=== PATIENT | female | born 1945 | race Caucasian/White ===

== ENCOUNTER 2020-10-11 12:49 | Outpatient (CLI) | payer MEDICARE, OTHER, SELFPAY ==
--- NOTE | 2020-10-11 13:00 | XRR_ITS ---
PROCEDURE INFORMATION: Exam: XR Abdomen Exam date and time: 10/11/2020 1:00 PM Age: 75 years old Clinical indication: Bloating; Patient HX: History--abdominal distension, abnormal lung sounds TECHNIQUE: Imaging protocol: XR of the abdomen. Views: Frontal supine view of the abdomen. 1 View. COMPARISON: No relevant prior studies available. FINDINGS: Gastrointestinal tract: There is a prominent amount of stool in the colon and rectum which may indicate constipation. There is no small bowel dilatation. Bones/joints: Degenerative changes are present in the spine. XR/XR KUB [id number] IMPRESSION: Prominent amount of stool consistent with constipation. No acute abnormality .
--- NOTE | 2020-10-11 13:00 | XRR_ITS ---
PROCEDURE INFORMATION: Exam: XR Chest Exam date and time: 10/11/2020 1:00 PM Age: 75 years old Clinical indication: Patient HX: History--abdominal distension, abnormal lung sounds TECHNIQUE: Imaging protocol: XR of the chest. Views: 2 views. COMPARISON: No relevant prior studies available. FINDINGS: Lungs: Unremarkable. No consolidation. Pleural spaces: Unremarkable. No pleural effusion. No pneumothorax. Heart/Mediastinum: The heart is not enlarged. There is calcification of the thoracic aorta. Bones/joints: There is a thoracolumbar scoliosis. There is diffuse decreased bone density. Degenerative changes are present in the spine. XR/XR chest 2V* [id number] IMPRESSION: No acute cardiopulmonary abnormality.
== END 2020-10-11 12:50 | disposition home or self-care (01) ==
LOC: RAD 12:56
PROVIDERS: Visit Provider Family Medicine
DX: R14.0 Abdominal distension (gaseous) (principal); R09.89 Other specified symptoms and signs involving the circulatory and respiratory systems
CPT/HCPCS: 71046; 74018

== ENCOUNTER 2020-10-26 09:06 | Outpatient (CLI) | payer MEDICARE, OTHER, SELFPAY ==
--- NOTE | 2020-10-26 09:25 | CT_ITS ---
WS: [id number] Exam: CT abdomen pelvis w con* [id number] Date/Time of Exam: 10/26/2020 9:25 AM Reason For Exam: LEFT LOWER QUADRANT PAIN, DISTENSION DLP: 867.[address] scans at [facility] use at least one of these dose optimization techniques: automat ed exposure control; mA and/or kV adjustment per patient size (includes targeted exams where dose is matched to clinical indication); or iterative reconstruction. 1.6 x 1.1 cm lobulated nodule partially visualized in the inferior left breast. 3 mm pleural-based no dule seen in the lateral aspect of the left lower lobe too small to characterize. Remaining lower daksha g zones were clear. The liver and gallbladder appear normal. The spleen is not enlarged. The stomach is unremarkable as visualized. The abdominal aorta is normal in caliber. The pancreas is unremarkable . The portal vein and IVC are patent. Normal adrenal glands and kidneys. Small bowel loops are not di lated. No significant large bowel abnormality seen. Moderate amount of stool in the colon. The append ix is not definitely identified but no findings that would suggest acute appendicitis. No free air. N o lymphadenopathy. No mass or adenopathy in the pelvis. The urinary bladder is unremarkable. No destr uctive bone lesions. Degenerative changes of the lumbar spine and scoliosis. Degenerative spondylolis thesis of L4 on L5. CT/CT abdomen pelvis w con* [id number] IMPRESSION: 1. 1.6 x 1.1 cm lobulated partially visualized nodular density in the inferior left breast. Physical exam and follow-up with mammography recommended unless th is has been recently performed. 2. 3 mm pleural-based nodule in the lateral aspect of the left lower lobe too s mall to characterize. 3. No mass, lymphadenopathy or acute finding in the abdomen or pelvis.
[2020-10-26] MEDS: iohexol 300 mg/mL 50 mL Btl PO (09:37)
[2020-10-26] MEDS: iohexol 300 mg/mL 100 mL Btl IV (10:56)
== END 2020-10-26 09:07 | disposition home or self-care (01) ==
PROVIDERS: PCP Family Medicine; Visit Provider Family Medicine
DX: R10.32 Left lower quadrant pain (principal); R14.0 Abdominal distension (gaseous); N63.20 Unspecified lump in the left breast, unspecified quadrant
CPT/HCPCS: 74177; 82565; Q9967

== ENCOUNTER 2020-10-31 14:32 | Outpatient (CLI) | payer MEDICARE, OTHER, SELFPAY ==
--- NOTE | 2020-10-31 14:40 | CT_ITS ---
WS: [id number] CT scan of the chest without IV contrast, additional two-dimensional coronal and sagittal reconstruct ion was performed. 10/31/2020 Clinical Data: LOCALIZED SWELLING, MASS AND LUMP TRUNK Comparison: CT abdomen and pelvis, 01/26/2021. DLP: 514.[address] scans at [facility] use at least one of these dose optimization techniques: automat ed exposure control; mA and/or kV adjustment per patient size (includes targeted exams where dose is matched to clinical indication); or iterative reconstruction. Findings: There is a density in the left breast in the axillary region. It may be helpful to do a steph mogram and perhaps a left axillary ultrasound. The left lower lobe pleural-based nodule is barely vis ible on axial image 36 of 61 and has not changed. No other nodules are seen. No masses or effusions a re seen. The heart size is normal with no pericardial effusion. There is calcification in the coronar y arteries. No pneumonia or pneumothorax is present. The pulmonary arterial system and thoracic aorta demonstrate no abnormalities or dilatations. The trachea bifurcates into the bronchi. There is no ax illary or significant mediastinal adenopathy. The upper abdomen shows no change from before. CT/CT chest wo con [id number] Impression: 1. Possible left breast mass in the axillary region and recommend mammography a nd axillary ultrasound. 2. Small left lower lobe pleural-based nodule and no further imaging is recomme nded.
== END 2020-10-31 14:33 | disposition home or self-care (01) ==
PROVIDERS: PCP Family Medicine; Visit Provider Family Medicine
DX: R91.1 Solitary pulmonary nodule (principal)
CPT/HCPCS: 71250

== ENCOUNTER 2022-05-18 12:47 | Outpatient (CLI) | payer MEDICARE, OTHER, SELFPAY ==
[2022-05-18 15:36] LABS: INR 1.83 (0.8-1.2)
== END 2022-05-18 12:48 | disposition home or self-care (01) ==
LOC: LAB 12:52
PROVIDERS: PCP Family Medicine; Visit Provider Surgery
DX: Z01.89 Encounter for other specified special examinations (principal)
CPT/HCPCS: 85610

== ENCOUNTER 2022-05-22 11:48 | Outpatient (CLI) | payer MEDICARE, OTHER, SELFPAY ==
[2022-05-22 12:45] LABS: INR 1.77 (0.8-1.2)
== END 2022-05-22 11:49 | disposition home or self-care (01) ==
LOC: LAB 11:52
PROVIDERS: PCP Family Medicine; Visit Provider Surgery
DX: Z01.89 Encounter for other specified special examinations (principal)
CPT/HCPCS: 85610

== ENCOUNTER 2022-05-22 22:22 | Inpatient (IN) | payer MEDICARE, OTHER, SELFPAY ==
--- NOTE | 2022-05-22 22:29 | XRR_ITS ---
PROCEDURE INFORMATION: Exam: XR Chest Exam date and time: 05/22/2022 11:04 PM Age: 76 years old Clinical indication: Other: High BP, arm numbness; Prior surgery; Surgery date: <1 month; Surgery type: Mitral valve replacement 2 weeks ago; Additional info: Cp TECHNIQUE: Imaging protocol: Radiologic exam of the chest. Views: 1 view. COMPARISON: CT chest con [id number] 10/31/2020 2:48 PM FINDINGS: Lungs: Bilateral lower lung field atelectasis versus infiltrate. Pleural spaces: Small to moderate right and moderate to large left pleural effusions. Heart/Mediastinum: Unremarkable. No cardiomegaly. Bones/joints: Sternotomy wires. XR/XR chest 1V portable [id number] IMPRESSION: 1. Small to moderate right and moderate to large left pleural effusions. 2. Bilateral lower lung field atelectasis versus infiltrate. 3. Sternotomy wires.
--- NOTE | 2022-05-22 22:29 | ECG_ITS ---
[facility] Test Date: 2022-05-22 Pat Name: Barbara Magallanes Department: Room: Gender: Female Machine Rigger: : 1945 Requested By: Ron Rojas Order Number: [id number] Ifeoma MD: Ian Guzman M.D. Measurements Intervals Supply Rate: 43 P: 16 HI: 127 QRS: -20 QRSD: 74 T: 45 QT: 482 QTc: 408 Interpretive Statements SINUS BRADYCARDIA POSSIBLE ANTERIOR MYOCARDIAL INFARCTION , PROBABLY OLD [30 ms Q WAVE IN V3/V4, OR R < 0.2 mV IN V4] No previous ECG available for comparison Electronically Signed On 05-23-2022 10:26:47 LINE ASSIGNER by Ian Guzman M.D. [email or web address] [facility]mer[facility] [id number]
[2022-05-22 22:35] VITALS: BMI 27.5
[2022-05-22 22:41] VITALS: BP 155/73; PULSE 42; RESP 21; O2SAT 87
--- NOTE | 2022-05-22 22:54 | CTR_ITS ---
PROCEDURE INFORMATION: Exam: CTA Chest With Contrast Exam date and time: 05/22/2022 11:58 PM Age: 76 years old Clinical indication: Shortness of breath; Prior surgery; Surgery date: <1 month; Patient HX: C/O SOB. Hypertension with hypoxia on monitor. Mitral valve replacement two weeks ago. TECHNIQUE: Imaging protocol: Computed tomographic angiography of the chest with contrast. 3D rendering (Not supervised by radiologist): MIP and/or 3D reconstructed images were created by the technologist. Radiation optimization: All CT scans at this facility use at least one of these dose optimization techniques: automated exposure control; mA and/or kV adjustment per patient size (includes targeted exams where dose is matched to clinical indication); or iterative reconstruction. Contrast material: OMNI 350; Contrast volume: 69 ml; Contrast route: INTRAVENOUS (IV); REPORTING DATA: Count of CT and Cardiac NM exams in prior 12 months: This patient has received 0 known CTs and 0 known cardiac nuclear medicine studies in the 12 months prior to the current study. COMPARISON: CT chest [facility] [id number] 10/31/2020 2:48 PM RADIATION DOSE METRICS: Total DLP (mGy-cm): 440.71 FINDINGS: Pulmonary arteries: Normal. No pulmonary emboli. Aorta: Unremarkable. No aortic aneurysm. No aortic dissection. Lungs: Bilateral dependent airspace infiltrates. Pleural spaces: Large bilateral pleural effusions. Heart: Cardiomegaly. Pericardial effusion measuring 10 mm in thickness. Coronary arteries: Coronary artery atherosclerotic calcifications. Lymph nodes: Unremarkable. No enlarged lymph nodes. Bones/joints: Unremarkable. No acute fracture. Soft tissues: Unremarkable. CT/CT angio chest PE protcl [id number] IMPRESSION: 1. Large bilateral pleural effusions. 2. Cardiomegaly. 3. Coronary artery atherosclerotic calcifications. 4. Pericardial effusion measuring 10 mm in thickness. 5. Bilateral dependent airspace infiltrates. 6. Negative for pulmonary embolus.
--- NOTE | 2022-05-22 23:06 | ED_ITS ---
HPI - SOB/Dyspnea General: Chief Complaint: Shortness of Breath/Dyspnea Stated Complaint: heart surgery 2 weeks ago/face and arm numbness Time Seen by Provider: 05/22/22 22:45 Source: patient Mode of arrival: ambulatory Limitations: no limitations History of Present Illness: HPI Narrative: 76-year-old female who had mitral valve replacement for mitral valve prolapse 2 weeks ago but no prior surgery at [facility] she states that she had some chronic dyspnea since then she has been doing breathing exercise she states today she had some tingling in her arms centimeter concerns when to get her INR checked she denies any pain anywhere. Denies any cough or fever. Associated symptoms: Deny abdominal pain, chest pain, fever(s), nausea or vomiting Review of Systems Const: Denies: fever(s), chills, body aches or change in appetite Eyes: Denies: blurry vision or eye discomfort ENMT: Denies: throat pain or dental pain Card: Denies: chest pain Resp: Reports: dyspnea GI: Denies: abdominal pain, nausea, vomiting or diarrhea : Denies: dysuria Musc: Denies: neck pain or back pain Skin/Breast: Denies: rash Neuro: Denies: headache(s) Psych: Denies: depression Abrahan/Lymph: Denies: easy bruising All/Imm: Denies: urticaria PFSH ED PFSH: Surgical History Mitral valve replaced Social History Current gender identity: Female Female Reproductive History: Spontaneous abortions: No Physical Exam Const: COMMON NORMALS: no acute distress, patient oriented x3 and healthy appearing HENMT: COMMON NORMALS: normocephalic and atraumatic HEAD & SCALP: normocephalic and atraumatic Eye: COMMON NORMALS: Equal, round and reactive pupils present and EOMs intact bilaterally PUPIL: Yes Equal, round and reactive pupils present Neck/C-Spine: COMMON NORMALS: full ROM and supple Chest: COMMONS NORMALS: normal inspection of the chest and normal palpation of entire chest wall Resp: COMMON NORMALS: normal respiratory effort, No retractions, No use of accessory muscles and clear to auscultation bilaterally AUSCULTATION: clear to auscultation bilaterally Cardio: COMMON NORMALS: regular rate, regular rhythm and No murmurs present (Cardio) RATE: regular rate RHYTHM: regular rhythm GI: COMMON NORMALS: Normal to inspection, nondistended, normoactive bowel sounds present, Soft to palpation, non-tender and no masses PALPATION: Yes Soft to palpation Extremity: COMMON NORMALS: normal to inspection and full ROM Neuro: COMMON NORMALS: patient oriented x3, moves all extremities and no focal motor deficits Psych: COMMON NORMALS: mental status grossly normal, Normal thought process present and cooperative THOUGHT PROCESS: Normal thought process present Skin: COMMON NORMALS: no rashes or lesions noted and no wounds GENERAL SKIN EXAM: no rashes or lesions noted Course Vital Signs: Vital signs: Vital Signs Oxygen Delivery Me thod 05/22/22 22:35 MDM - SOB/Dyspnea Medical Decision Making Patient presents here with dyspnea she is hypoxic here as well CT scan reveals bilateral pleural effusions no PE spoke to hospitalist will admit at this time did give her Lasix in the ER. Lab Data 05/22/22 23:52 05/22/22 23:52 Labs/Radiology: Radiology Impressions Chest X-Ray 05/22/22 22:29 IMPRESSION: 1. Small to moderate right and moderate to large left pleural effusions. 2. Bilateral lower lung field atelectasis versus infiltrate. 3. Sternotomy wires. Chest CTA 05/22/22 22:54 IMPRESSION: 1. Large bilateral pleural effusions. 2. Cardiomegaly. 3. Coronary artery atherosclerotic calcifications. 4. Pericardial effusion measuring 10 mm in thickness. 5. Bilateral dependent airspace infiltrates. 6. Negative for pulmonary embolus. Laboratory Results WBC 12.1 10^3/uL (4.0-10.0) H 05/22/22 23:52 RBC 3.45 10^6/uL (4.1-5.3) L 05/22/22 23:52 Hgb 10.7 g/dL (11.5-15.3) L 05/22/22 23:52 Hct 33.5 % (37.0-47.0) L 05/22/22 23:52 MCV 97.1 fl (81-99) 05/22/22 23:52 MCH 31.0 pg (28.0-34.0) 05/22/22 23:52 MCHC 31.9 g/dL (30.0-36.0) 05/22/22 23:52 RDW 13.6 % (12.1-15.1) 05/22/22 23:52 Plt Count 380 10^3/cmm (130-400) 05/22/22 23:52 MPV 8.8 fL (7.4-10.4) 05/22/22 23:52 Neut % (Auto) 84.6 % 05/22/22 23:52 Lymph % (Auto) 5.9 % 05/22/22 23:52 [place] % (Auto) 7.9 % 05/22/22 23:52 Eos % (Auto) 0.7 % 05/22/22 23:52 Baso % (Auto) 0.3 % 05/22/22 23:52 Neut # (Auto) 10.25 10^3/uL (1.8-7.7) H 05/22/22 23:52 Lymph # (Auto) 0.7 10^3/uL (0.8-4.8) L 05/22/22 23:52 [place] # (Auto) 1.0 10^3/uL (0.2-0.9) H 05/22/22 23:52 Eos # (Auto) 0.1 10^3/uL (0.0-0.8) 05/22/22 23:52 Baso # (Auto) 0.0 10^3/uL (0.0-0.1) 05/22/22 23:52 Nucleated RBC % (auto) 0 % 05/22/22 23:52 Nucleated RBCs # 0.0 /100WBC 05/22/22 23:52 PT 21.30 SECONDS (12.1-14.9) H 05/22/22 23:52 INR 1.78 (0.8-1.2) H 05/22/22 23:52 Sodium 133 mmol/L (136-145) L 05/22/22 23:52 Potassium 4.1 mmol/L (3.5-5.1) 05/22/22 23:52 Chloride 98 mmol/L (98-107) 05/22/22 23:52 Carbon Dioxide 26 mmol/L (22-29) 05/22/22 23:52 Anion Gap 13.1 (5-19) 02/21/23 23:52 BUN 11 mg/dL (8-23) 05/22/22 23:52 Creatinine 0.5 mg/dL (0.5-0.9) 05/22/22 23:52 GFR Calculation Not Reportable 05/22/22 23:52 Glucose 114 mg/dL (65-115) 05/22/22 23:52 Calculated Osmolality 276 mOsm/kg (285-295) L 05/22/22 23:52 Calcium 8.4 mg/dL (8.5-10.5) L 05/22/22 23:52 Total Bilirubin 0.3 mg/dL (0.15-1.2) 05/22/22 23:52 AST 19 U/L (0-32) 05/22/22 23:52 ALT 33 U/L (0-33) 05/22/22 23:52 Alkaline Phosphatase 111 U/L (35-105) H 05/22/22 23:52 Troponin T Baseline 67 ng/L (0-10) H 05/22/22 23:52 NT-Pro-B Natriuret Pep 2971 pg/mL (0-450) H 05/22/22 23:52 Total Protein 7.0 g/dL (6.6-8.7) 05/22/22 23:52 Albumin 3.4 g/dL (3.5-5.2) L 05/22/22 23:52 Globulin 3.6 g/dL (1.3-4.6) 05/22/22 23:52 EKG Data EKG 1: I personally reviewed and interpreted this EKG as follows: EKG Interpretation Date: 05/22/22 EKG interpretation time: 22:41 Interpretation: sinus rachel hr 43 no t or t wave abnormalities qrs 74 qtc 427 Discharge Plan Discharge Patient Disposition: Admitted As Inpatient Admit Provider: Robert Monson Clinical Impression: Pleural effusion Condition: Stable Coding Level of Care Code ED Direct Support Professional Caregiver for James Luu
[2022-05-23] VITALS (14 sets, daily range): BP systolic 130–177; BP diastolic 54–91; PULSE 50–75; RESP 18–28; TEMP 36.6; O2SAT 93–97; BMI 26.5
[2022-05-23 00:11] LABS: INR 1.78 (0.8-1.2)
[2022-05-23] MEDS: iohexol 350 mg/mL 500 mL Btl (per mL) IV (00:13)
[2022-05-23 00:18] LABS: Troponin(5th) Baseline 67 ng/L (0-10)
[2022-05-23 00:24] LABS: Basophils % 0.3 %; Eosinophils # 0.1 10^3/uL (0.0-0.8); Eosinophils % 0.7 %; Hematocrit 33.5 % (37.0-47.0); Hemoglobin 10.7 g/dL (11.5-15.3); Lymphocytes # 0.7 10^3/uL (0.8-4.8); Lymphocytes % 5.9 %; Mean Corpuscular HGB Conc 31.9 g/dL (30.0-36.0); Mean Corpuscular Volume 97.1 fl (81-99); Mean Platelet Volume 8.8 fL (7.4-10.4); Monocytes % 7.9 %; Neutrophils # 10.25 10^3/uL (1.8-7.7); Neutrophils % 84.6 %; Nucleated Red Blood Cells % 0 %; Platelet Count 380 10^3/cmm (130-400); Red Blood Count 3.45 10^6/uL (4.1-5.3); Red Cell Distribution Width 13.6 % (12.1-15.1); White Blood Count 12.1 10^3/uL (4.0-10.0)
[2022-05-23 00:26] LABS: Alanine Aminotransferase 33 U/L (0-33); Albumin Level 3.4 g/dL (3.5-5.2); Alkaline Phosphatase 111 U/L (35-105); Anion Gap 13.1 (5-19); Aspartate Amino Transferase 19 U/L (0-32); Blood Urea Nitrogen 11 mg/dL (8-23); Calcium 8.4 mg/dL (8.5-10.5); Carbon Dioxide 26 mmol/L (22-29); Chloride 98 mmol/L (98-107); Globulin 3.6 g/dL (1.3-4.6); Glucose 114 mg/dL (65-115); NT Pro B Type Natriuretic Pept 2971 pg/mL (0-450); Osmolality Calculated 276 mOsm/kg (285-295); Potassium 4.1 mmol/L (3.5-5.1); Sodium 133 mmol/L (136-145); Total Bilirubin 0.3 mg/dL (0.15-1.2)
--- NOTE | 2022-05-23 02:14 | USCV_ITS ---
Barbara Magallanes Age: 76 Gender: F : 1945 Exam Date: 05/23/2022 02:42 Ordering Phys: Ron Rojas MD Technologist: DANIEL [place] [facility] [place]: face / arm numbness, shortness of breath s/p MVR 05/09/2022. BP: 173 / 89 HR: 65 Rhythm: Sinus Technical Quality: Good MEASUREMENTS (Male / Female) Normal Values 2D ECHO LV Diastolic Diameter PLAX 4.0 cm 4.2 - 5.9 / 3.9 - 5.3 cm LV Systolic Diameter PLAX 2.8 cm IVS Diastolic Thickness 0.9 cm 0.6 - 1.0 / 0.6 - 0.9 cm IVS Systolic Thickness 1.0 cm LVPW Diastolic Thickness 1.5 cm 0.6 - 1.0 / 0.6 - 0.9 cm LVPW Systolic Thickness 1.5 cm LVOT Diameter 2.3 cm LV Ejection Fraction 2D Teich 59.3 % LV Ejection Fraction MOD 2C 69.7 % LV Ejection Fraction 2C AL 70.1 % LA Diameter 4.3 cm LA Width 4.6 cm LA Height 5.3 cm RA Width 3.3 cm RA Height 4.4 cm Aorta at Sinotubular Diameter 2.9 cm IVC Diameter 3.1 cm M-MODE Aortic Annulus Diameter 3.1 cm LA Ao Ratio MM 1.2 DOPPLER AV Peak Velocity 150.0 cm/s LVOT Peak Velocity 84.0 cm/s AV Area Cont Eq vti 2.5 cm squared AV Area Cont Eq pk 2.3 cm squared MV Area PHT 1.8 cm squared Mitral E to A Ratio 1.0 MV E' Velocity 76.0 cm/s Mitral E to MV E' Ratio 20.1 Mitral E to LV E' Lateral Ratio 26.7 Mitral E to LV E' Septal Ratio 16.1 TR Peak Velocity 324.5 cm/s TR Peak Gradient 42.1 mmHg TV Peak E Velocity 59.0 cm/s Right Atrial Pressure 15.0 mmHg Pulmonary Artery Systolic Pressu 57.1 mmHg PV Peak Velocity 124.0 cm/s FINDINGS Left Ventricle Left ventricle is normal in size. LV systolic function is normal with EF of 55-60%. No regional wall motion abnormalities are seen. Right Ventricle Normal in size and function Right Atrium Normal in size Left Atrium Dilated Mitral Valve Limited visualization. Prosthetic mitral valve is noted. No significant stenosis or regurgitation. Aortic Valve Calcified valve. No significant stenosis or regurgitation is seen. Tricuspid Valve Mild tricuspid regurgitation. RVSP is 55 to 60 mmHg. Moderate pulmonary hypertension. Pulmonic Valve Not well visualized. Moderate pulmonic regurgitation. Pericardium Pleural effusion is noted. Minimal pericardial effusion Aorta Ascending aorta is dilated IVC Dilated CONCLUSIONS LV systolic function is normal with EF 55 to 60%. Left atrial dilation Limited visualization of mitral valve. There is prosthetic mitral valve noted. Calcified aortic valve. Mild tricuspid regurgitation Moderate pulmonary hypertension Moderate pulmonic regurgitation. Pleural effusion is seen. Minimal pericardial effusion Ascending aortic is dilated. IVC is dilated consistent with volume overload No comparison studies are available Ian Guzman MD (Electronically Signed) Final Date: 23 May 2022 17:17 S
--- NOTE | 2022-05-23 02:17 | PM.HP ---
Providers/Chief Complaint Primary Care Provider: Lindsay Prater MD Chief Complaint: heart surgery 2 weeks ago/face and arm numbness History of Present Illness Barbara Magallanes is a 76 year old female with past medical history of hypertension, hypothyroidism, recent mitral valve replacement for mitral valve prolapse at [facility] within the last 2 weeks and was discharged 2 weeks ago who usually has called for cardiac care done at [facility]. As per patient since she was discharged she has noticed increased in lower limb swelling along with gradually increasing and difficulty in breathing for last 3 to 4 days. Currently she gets out of breath on minimal activity like taking or taking a bath. Complains of orthopnea and PND. Denies any nausea, vomiting, headache. Does complain of constipation. Denies any runny nose, postnasal drip, recent sick contacts. She states she has home health who checks her INR and usual numbers are around 1.7-1.8. Checks her blood pressure daily at home and usual numbers 140 systolics. Does have an event monitor placed as well. She denies of having any palpitations since discharge still today morning after coming to the ER. Denies any episodes of chest pain Review of Systems General: Reports: 10 or more systems reviewed and unremarkable except in HPI and below Const: Denies: fever(s), chills, body aches, change in appetite, change in weight, malaise, night sweats, diaphoresis, change in sleep pattern, daytime sleepiness or snoring Eyes: Denies: change in vision, blurry vision, photophobia, eye discomfort or eye discharge ENMT: Denies: throat pain, enlarged tonsils, hoarseness, mouth pain, oral sores, dry mouth, tinnitus, nasal congestion or post nasal drip Card: Denies: chest pain, palpitations, irregular heart rhythm, edema, swelling of feet/ankles, lightheadedness, syncope, pre-syncope, dyspnea on exertion, orthopnea, leg pain with exertion or acrocyanosis Resp: Denies: dyspnea, productive cough, non-productive cough, wheezing, stridor, pain on inspiration, change in phlegm color, hemoptysis or chest congestion GI: Denies: abdominal pain, nausea, vomiting, hematemesis, coffee ground emesis, dysphagia, heartburn, diarrhea, constipation, bloating, GI cramping, change in bowel habits, pain on defecation, hematochezia or melena : Denies: flank pain, dysuria, urinary frequency, urinary urgency, urinary hesitancy, nocturia or hematuria Musc: Denies: neck pain, back pain, extremity pain, joint pain, joint swelling, joint redness, joint stiffness or limited range of motion Neuro: Denies: headache(s), numbness in extremities, weakness in extremities, sensory changes, lack of coordination, difficulty walking, frequent falls, dizziness, vertigo, confusion, Slurred speech present, difficulty communicating thoughts or seizure-like activity Psych: Denies: anxiety, depression, mood swings, panic attacks, hopelessness or irritability Endo: Denies: polyuria, polydipsia, tired all the time, cold intolerance, excessive sweating, flushing or heat intolerance Abrahan/Lymph: Denies: easy bruising or easy bleeding All/Imm: Denies: tongue swelling, facial swelling or acute wheezing Medications/Allergies Home Medications Medication Instructions Recorded Confirmed Last Taken Type alendronate 70 mg tablet 70 mg PO DAILY 11/28/19 11/28/19 Unknown History amlodipine 5 mg tablet 5 mg PO DAILY 11/28/19 11/28/19 Unknown History atorvastatin 10 mg tablet 10 mg PO DAILY 11/28/19 11/28/19 Unknown History doxycycline hyclate 100 mg tablet 100 mg PO BID 10 days #20 tabs 11/28/19 11/28/19 Unknown Rx levothyroxine 25 mcg capsule 25 mcg PO DAILY 11/28/19 11/28/19 Unknown History olmesartan 40 mg tablet 40 mg PO DAILY 11/28/19 11/28/19 Unknown History zolpidem 10 mg tablet (Ambien) See Rx Instructions PO DAILY PRN 11/28/19 11/28/19 Unknown History insomnia Allergies Allergy/AdvReac Type Severity Reaction Status Date / Time pneumococcal vaccine Allergy ALGY-Difficulty Verified 05/23/22 05:40 Breathing Additional Medication Information Updated medication list not available. Have requested patient plan to bring in the updated list. Patient also on Coumadin. PFSH Acute PFSH: Medical History (Updated 05/23/22 @ 06:19 by Robert Monson MD) HTN (hypertension) Hypothyroid Mitral valve prolapse Surgical History (Updated 05/23/22 @ 06:05 by Robert Monson MD) H/O: section Mitral valve replaced Family History (Updated 05/23/22 @ 06:07 by Robert Monson MD) Other CAD (coronary artery disease) Hypertension Social History (Updated 05/23/22 @ 06:08 by Robert Monson MD) Smoking and tobacco status: never smoked Alcohol intake: never Substance/Drug Use: never Caregiver/support person: Yes Lives independently: Yes Household members: friend(s) Housing: House Current gender identity: Female Female Reproductive History: Spontaneous abortions: No Vitals/I&O/Wt Last Vital Signs O2 Del Method 05/22/22 22:35 Weight last 48 hrs Weight 63.957 kg Physical Exam Narrative: General: No acute distress, AO x3 HEENT: PERRLA, pupils bilaterally equal and reactive Chest: Normal respiratory breath sounds bilaterally, decreased air entry bilaterally in lower zone, fine crackles in the mid lungs CVS: S1-S2 regular, soft pansystolic murmur at apex with mitral click, no tachycardia, no gallops, no rubs, central recent sternotomy scar present, he will be without any drainage Abdomen: Soft, nontender, no organomegaly, bowel sounds present Neuro: No focal deficits, no facial deformity, AO x3, power 5/5 in all limbs Data 05/22/22 23:52 05/22/22 23:52 A&P Assessment and plan (1) Congestive heart failure with left ventricular diastolic dysfunction, NYHA class 4: (2) Pleural effusion: (3) Mitral valve replaced: (4) Subtherapeutic international normalized ratio (INR): (5) HTN (hypertension): (6) Hypothyroid: Plan 76-year-old lady with recent history of mitral valve replacement for mitral valve collapse within last 2 weeks at outside hospital comes to the ER because of difficulty in breathing and consistent with NYHA class IV found to have bilateral pleural effusions and lower limb swelling. NYHA class IV congestive heart failure/mitral valve replacement: We will try to get documents from [facility] regarding recent mitral valve replacement. IV Lasix 40 mg twice daily. Doran catheterization. Strict input output charting. Daily weights. Fluid restriction up to 1500 cc. Monitor BMP and replace potassium accordingly. Echocardiogram to evaluate for ejection fraction, possible pericardial effusion versus staph mitral valve. Infectious cause less likely. We will hold off on antibiotics. Check urine Legionella, bacterial antigen, sputum culture, respiratory viral panel. Oxygen supplementation keeping saturation over 92%. DuoNebs every 6 hour as needed. Bilateral pleural effusion: Most likely in setting of congestive heart failure. Patient not requiring high oxygen supplementation so can hold off on thoracentesis for now as that could put her at a risk of possibly introducing infection. Can continue to monitor after diuresis. Hypertension: Goal blood pressure less than 140/90 mmHg Patient takes valsartan and amlodipine at home. Continue with home dose of valsartan. Hold off on amlodipine because that could also be contributing to lower limb swelling. Will uptitrate medications as per goal blood pressures. If blood pressures remain elevated can add hydralazine oral. IV hydralazine 10 mg every 6 hourly for blood pressure of more than 170 mmHg. Subtherapeutic INR: Goal INR in for 3 months for mitral valve repair around 2.5. Currently 1.7. Check INR daily. Medical reconciliation to be done to gather current Coumadin dose. Start on heparin drip will be bridged over to oral Coumadin. Continue home dose of statin and levothyroxine. Full code. Cardiac diet. Famotidine for PUD prophylaxis Bridging between heparin drip and Coumadin will suffice as DVT prophylaxis Attestations Medical Necessity Statement*: Admission for more than 2 midnights for management of NYHA class IV congestive heart failure in a patient with recent mitral valve replacement, subtherapeutic INR and Moderate Time for a total of 60 minutes, includes reviewing past or interval history, examining/interviewing patient, placing orders, counseling patient/family/other support, updating patient/family/other support, discussing plan of care with staff, communicating with other healthcare providers, documenting encounter and coordinating care Diagnoses Congestive heart failure with left ventricular diastolic dysfunction, NYHA class 4 I50.30 Pleural effusion J90 Mitral valve replaced Z95.2 Subtherapeutic international normalized ratio (INR) R79.1 HTN (hypertension) I10 Hypothyroid E03.9
[2022-05-23] MEDS: FUROsemide 10 mg/mL SDV 4mL 40 MG IVP ×3 (02:29→19:18)
[2022-05-23 03:11] LABS: Thyroid Stimulating Hormone 1.39 uIU/mL (0.27-4.20)
[2022-05-23 03:38] LABS: Estmated Average Glucose 108; Hemoglobin A1C 5.4 % (4.0-6.0)
[2022-05-23 04:56] LABS: Troponin 5 2HR 73.11 ng/L (0-10)
--- NOTE | 2022-05-23 05:06 | ECG_ITS ---
[facility] Test Date: 2022-05-23 Pat Name: Barbara Magallanes Department: Room: 104 Gender: Female Fireperson: : 1945 Requested By: Ron Rojas Order Number: [id number] Ifeoma MD: Ian Guzman M.D. Measurements Intervals [place] Rate: 66 P: 32 TN: 174 QRS: -14 QRSD: 91 T: 35 QT: 423 QTc: 446 Interpretive Statements SINUS RHYTHM WITH OCCASIONAL VENTRICULAR PREMATURE COMPLEXES SEPTAL MYOCARDIAL INFARCTION , PROBABLY OLD [40+ ms Q WAVE IN V1/V2] Compared to ECG 05/22/2022 22:41:19 Ventricular premature complex(es) now present Sinus bradycardia no longer present Myocardial infarct finding still present Electronically Signed On 05-23-2022 10:28:45 PHLEBOTOMY DIRECTOR by Ian Guzman M.D. [email or web address]
[2022-05-23 05:14] LABS: Add Urine Microscopic? NO; Charge for UA Resulting for Rev
[2022-05-23 05:30] LABS: Chol HDL Ratio 2.59 mg/dL (0.0-4.40); Cholesterol 119 mg/dL (0-200); HDL Cholesterol 46 mg/dL (60-100); Iron 35 ug/dL (37-145); LDL Cholesterol Calculated 59 mg/dL (50-129); Percent Saturation 14.8 % (20-50); Total Iron Binding Capacity 235 mcg/dl; Triglycerides 68 mg/dL (0-150); Unsaturated Iron Binding 200 ug/dL (112-347); VLDL Cholestrol Calculation 14 mg/dL (0-30)
[2022-05-23 05:36] LABS: Troponin 5 2HR Delta 6.11 ABS# (0-10)
[2022-05-23 05:38] LABS: Urine Appearance Clear (CLEAR); Urine Color Colorless (Yellow); pH Urine 7 (5-7)
[2022-05-23 05:39] LABS: Bilirubin Urine Neg (Negative); Blood Urine Neg (Negative); Glucose Urine UA Norm (Normal); Ketones Urine Negative (Negative); Leukocyte Esterase Urine Negative (Negative); Nitrate Urine Negative (Negative); Protein Urine Neg (Negative); Urobilinogen Urine Norm (Negative)
[2022-05-23 05:45] LABS: Folate Level 15.4 ng/mL (4.8-37.3)
[2022-05-23 05:46] LABS: Procalcitonin 0.03 ng/mL (0-0.5); Vitamin B12 423 pg/mL (232-1245)
[2022-05-23 05:54] LABS: Adenovirus Not Detected (NOT DETECT); Chlamydia Pneumoniae Not Detected (NOT DETECT); Coronavirus 229E,HKU1,NL63,OC4 Not Detected (NOT DETECT); Human Metapneumovirus Not Detected (NOT DETECT); Human Rhinovirus/Enterovirus Not Detected (NOT DETECT); Influenza A Not Detected (NOT DETECT); Influenza A H1 Not Detected (NOT DETECT); Influenza A H1-2009 Not Detected (NOT DETECT); Influenza A H3 Not Detected (NOT DETECT); Influenza B Not Detected (NOT DETECT); Mycoplasma Pneumoniae Not Detected (NOT DETECT); Parainfluenza Virus Type 1 Not Detected (NOT DETECT); Parainfluenza Virus Type 2 Not Detected (NOT DETECT); Parainfluenza Virus Type 3 Not Detected (NOT DETECT); Parainfluenza Virus Type 4 Not Detected (NOT DETECT); Respiratory Syncytial Virus A Not Detected (NOT DETECT); Respiratory Syncytial Virus B Not Detected (NOT DETECT); SARS-COV-2 Not Detected (NOT DETECT)
--- NOTE | 2022-05-23 06:00 | USCV_ITS ---
Barbara Magallanes Age: 76 Gender: F : 1945 Exam Date: 05/23/2022 09:12 Ordering Phys: Robert Monson MD Technologist: ROLAND Exam Location: [facility] Indication: BLE EDEMA HISTORY: Lower extremity edema. PROCEDURES: Venous duplex imaging was performed in bilateral lower extremities. The following venous structures were evaluated: common femoral vein, profunda vein, proximal portion of the greater saphenous vein, superficial femoral vein, and the popliteal vein. In addition, the posterior tibial and peroneal trunk were evaluated. Serial compression, augmentation maneuvers, and spectral Doppler flow evaluation were performed. FINDINGS: No evidence of DVT seen in any vessel visualized at this time. Bilat edema seen in lower legs CONCLUSIONS No evidence of right lower extremity DVT. No evidence of left lower extremity DVT. Lyle Rodriguez MD (Electronically Signed) Final Date: 23 May 2022 10:17 S
[2022-05-23] MEDS: heparin 5,000 unit/mL INJ 1 mL IV ×2 (06:22→21:34)
[2022-05-23] MEDS: magnesium hydroxide 30 mL UDC PO (06:22)
[2022-05-23] MEDS: heparin drip 25,000 UNIT/500 ML PREMIX 17 UNIT IV (06:23)
[2022-05-23 07:30] LABS: Troponin 5 6HR 78.26 ng/L (0-10)
[2022-05-23 07:33] LABS: Alanine Aminotransferase 29 U/L (0-33); Albumin Level 3.1 g/dL (3.5-5.2); Alkaline Phosphatase 102 U/L (35-105); Aspartate Amino Transferase 19 U/L (0-32); Blood Urea Nitrogen 9 mg/dL (8-23); Calcium 8.4 mg/dL (8.5-10.5); Carbon Dioxide 28 mmol/L (22-29); Chloride 101 mmol/L (98-107); Creatinine Clr Calc Pharmacy 47.5541; Globulin 3.6 g/dL (1.3-4.6); Glucose 95 mg/dL (65-115); Osmolality Calculated 286 mOsm/kg (285-295); Sodium 139 mmol/L (136-145); Total Bilirubin 0.4 mg/dL (0.15-1.2); Total Protein 6.7 g/dL (6.6-8.7); Troponin 5 6HR Delta 11.26 ng/L (0-12)
[2022-05-23 07:34] LABS: Anion Gap 14.1 (5-19); Potassium 4.1 mmol/L (3.5-5.1)
[2022-05-23 08:20] LABS: INR 1.75 (0.8-1.2)
[2022-05-23] MEDS: losartan 50 mg Tablet 100 MG PO (10:05)
[2022-05-23] MEDS: docusate sodium 100 mg Capsule PO (10:06)
[2022-05-23] MEDS: levothyroxine 25 mcg Tablet PO (10:06)
[2022-05-23] MEDS: atorvastatin 40 mg Tablet 20 MG PO (10:07)
[2022-05-23] MEDS: famotidine 20 mg Tablet PO ×2 (10:07→18:09)
[2022-05-23] MEDS: potassium chloride ER 20 mEq Tablet PO ×2 (10:07→18:09)
[2022-05-23] MEDS: spironolactone 25 mg Tablet 50 MG PO (10:07)
[2022-05-23] MEDS: ferrous gluconate 324 mg Tablet PO (10:07)
[2022-05-23 13:00] LABS: Partial Thromboplastin Time 96.4 SECONDS (23.9-36.7)
[2022-05-23] MEDS: warfarin 4 mg Tablet PO (15:23)
--- NOTE | 2022-05-23 16:55 | P.PN_ITS ---
Subjective Subjective: Patient was seen this morning, she tells me that she feels a bit better, no fevers, no chills, no cough, no lightheadedness, no dizziness, her shortness of breath and her edema has improved Vitals/I&O/Wt Last Vital Signs Temp 97.8 F 05/23/22 16:00 Pulse 71 05/23/22 16:00 Resp 28 H 05/23/22 16:00 BP 141/54 05/23/22 16:00 Pulse Ox 94 05/23/22 16:00 O2 Del Method 05/23/22 16:00 O2 Flow Rate 4 05/23/22 14:18 05/23/22 05/23/22 05/23/22 06:59 14:59 22:59 Intake Total 100 / 100 596.45 / 596.45 Output Total 1300 / 1300 350 / 350 Balance -1200 / -1200 246.45 / 246.45 Weight last 48 hrs Weight 61.689 kg Weight 63.957 kg Physical Exam Const: COMMON NORMALS: no acute distress and patient oriented x3 Resp: COMMON NORMALS: normal respiratory effort, No retractions and No use of accessory muscles AUSCULTATION: crackles Cardio: COMMON NORMALS: regular rate, regular rhythm, S1 normal heart sound present and S2 normal heart sound present RATE: regular rate RHYTHM: regular rhythm HEART SOUNDS: S1 normal heart sound present and S2 normal heart sound present GI: COMMON NORMALS: Normal to inspection, nondistended, normoactive bowel sounds present and non-tender Extremity: COMMON NORMALS: no pedal edema Neuro: COMMON NORMALS: patient oriented x3 Psych: COMMON NORMALS: mental status grossly normal Urinary Catheter Management: Doran: Cath Placed During This Visit: yes Reason for Continuing Indwelling Catheter: Acute Urinary Retention or Obstruction Urinary Catheter Date of Insertion: 05/23/22 Urinary Catheter Time of Insertion: 05:30 Data 05/22/22 23:52 05/23/22 06:34 Micro: Microbiology 05/23/22 04:15 Blood Culture - Preliminary Blood SPECIMEN COLLECTED 05/23/22 04:55 Bacterial Antigens - Final Urine Kidney 05/23/22 04:55 Legionella Urinary Antigen - Final Urine,Clean Catch 05/23/22 04:19 Blood Culture - Preliminary Blood SPECIMEN COLLECTED A&P Assessment and plan (1) Congestive heart failure with left ventricular diastolic dysfunction, NYHA class 4: (2) Pleural effusion: (3) Mitral valve replaced: (4) Subtherapeutic international normalized ratio (INR): (5) HTN (hypertension): (6) Hypothyroid: (7) Anemia: (8) NSTEMI (non-ST elevated myocardial infarction): Plan 76-year-old lady with recent history of mitral valve replacement for mitral valve collapse within last 2 weeks at outside hospital comes to the ER because of difficulty in breathing and consistent with NYHA class IV found to have bilateral pleural effusions and lower limb swelling. NYHA class IV congestive heart failure/mitral valve replacement: Awaiting records from [facility] regarding recent mitral valve replacement., She tells me that she spent over 6 days in the hospital she is not sure if she any postoperative complications and no history of bleeding no history of pneumonias IV Lasix 40 mg twice daily. Doran catheterization. Strict input output charting. Daily weights. Fluid restriction up to 1500 cc. Monitor BMP and replace potassium accordingly. Echocardiogram to evaluate for ejection fraction, possible pericardial effusion versus staph mitral valve. Infectious cause less likely. We will hold off on antibiotics. Normal Pro-Garrison Check urine Legionella, bacterial antigen, sputum culture, respiratory viral panel so far within normal limits. Oxygen supplementation keeping saturation over 92%. DuoNebs every 6 hour as needed. Bilateral pleural effusion: Most likely in setting of congestive heart failure. Patient not requiring high oxygen supplementation so can hold off on thorace ntesis for now as that could put her at a risk of possibly introducing infection. Can continue to monitor after diuresis. Hypertension: Goal blood pressure less than 140/90 mmHg Patient takes valsartan and amlodipine at home. Continue with home dose of valsartan. Hold off on amlodipine because that could also be contributing to lower limb swelling. Will uptitrate medications as per goal blood pressures. If blood pressures remain elevated can add hydralazine oral. IV hydralazine 10 mg every 6 hourly for blood pressure of more than 170 mmHg. Subtherapeutic INR: Goal INR in for 3 months for mitral valve repair around 2.5. Currently 1.7. Check INR daily. Bridge with heparin drip Medical reconciliation to be done to gather current Coumadin dose. Start on heparin drip will be bridged over to oral Coumadin. Pharmacy consult for Coumadin Continue home dose of statin and levothyroxine. NSTEMI, likely type II, supply demand ischemia from respiratory failure, monitor Has evidence of anemia, seems as if iron deficiency anemia as her low iron we will get a ferritin level consider IV Venofer here Full code. Cardiac diet. Famotidine for PUD prophylaxis Bridging between heparin drip and Coumadin will suffice as DVT prophylaxis Attestations Medical Necessity Statement*: Patient requires hospitalization due to CHF, bilateral pleural effusions, subtherapeutic air INR, NSTEMI, iron deficiency a nemia Diagnoses Congestive heart failure with left ventricular diastolic dysfunction, NYHA class 4 I50.30 Pleural effusion J90 Mitral valve replaced Z95.2 Subtherapeutic international normalized ratio (INR) R79.1 HTN (hypertension) I10 Hypothyroid E03.9 Anemia D64.9 NSTEMI (non-ST elevated myocardial infarction) I21.4
[2022-05-23 17:51] LABS: Ferritin 484 ng/mL (15-150)
[2022-05-23] MEDS: aspirin 325 mg Tablet PO (18:09)
[2022-05-23 21:21] LABS: Partial Thromboplastin Time 48.8 SECONDS (23.9-36.7)
[2022-05-24] VITALS (12 sets, daily range): BP systolic 117–168; BP diastolic 65–89; PULSE 66–81; RESP 18–24; TEMP 36.9–37; O2SAT 91–97
[2022-05-24 04:00] LABS: Basophils # 0.1 10^3/uL (0.0-0.1); Basophils % 0.6 %; Eosinophils # 0.1 10^3/uL (0.0-0.8); Eosinophils % 1.3 %; Hematocrit 31.8 % (37.0-47.0); Lymphocytes % 10.8 %; Mean Corpuscular HGB Conc 31.4 g/dL (30.0-36.0); Mean Corpuscular Volume 98.5 fl (81-99); Mean Platelet Volume 8.6 fL (7.4-10.4); Monocytes # 0.8 10^3/uL (0.2-0.9); Monocytes % 9.3 %; Neutrophils % 77.6 %; Nucleated Red Blood Cells % 0 %; Platelet Count 344 10^3/cmm (130-400); Red Blood Count 3.23 10^6/uL (4.1-5.3); Red Cell Distribution Width 13.7 % (12.1-15.1); White Blood Count 8.9 10^3/uL (4.0-10.0)
[2022-05-24 04:16] LABS: INR 1.93 (0.8-1.2); Partial Thromboplastin Time 53.7 SECONDS (23.9-36.7)
[2022-05-24 04:19] LABS: Alanine Aminotransferase 28 U/L (0-33); Alkaline Phosphatase 96 U/L (35-105); Anion Gap 13.1 (5-19); Aspartate Amino Transferase 20 U/L (0-32); Blood Urea Nitrogen 12 mg/dL (8-23); Calcium 8.1 mg/dL (8.5-10.5); Carbon Dioxide 28 mmol/L (22-29); Chloride 102 mmol/L (98-107); Creatinine Clr Calc Pharmacy 47.5541; Globulin 3.5 g/dL (1.3-4.6); Glucose 95 mg/dL (65-115); Magnesium 2.5 mg/dL (1.7-2.3); Osmolality Calculated 288 mOsm/kg (285-295); Phosphorus 3.4 mg/dL (2.5-4.5); Potassium 4.1 mmol/L (3.5-5.1); Sodium 139 mmol/L (136-145); Total Bilirubin 0.3 mg/dL (0.15-1.2); Total Protein 6.5 g/dL (6.6-8.7)
[2022-05-24] MEDS: pantoprazole DR 40 mg Tablet PO (04:25)
[2022-05-24] MEDS: heparin 5,000 unit/mL INJ 1 mL IV (04:33)
[2022-05-24] MEDS: spironolactone 25 mg Tablet 50 MG PO (09:28)
[2022-05-24] MEDS: docusate sodium 100 mg Capsule PO ×2 (09:28→17:11)
[2022-05-24] MEDS: ferrous gluconate 324 mg Tablet PO ×2 (09:28→17:11)
[2022-05-24] MEDS: losartan 50 mg Tablet 100 MG PO (09:28)
[2022-05-24] MEDS: atorvastatin 40 mg Tablet 20 MG PO (09:29)
[2022-05-24] MEDS: potassium chloride ER 20 mEq Tablet PO ×2 (09:29→17:11)
[2022-05-24] MEDS: famotidine 20 mg Tablet PO ×2 (09:29→17:11)
[2022-05-24] MEDS: levothyroxine 25 mcg Tablet PO (09:30)
[2022-05-24] MEDS: FUROsemide 10 mg/mL SDV 4mL 40 MG IVP ×2 (09:30→20:03)
--- NOTE | 2022-05-24 10:42 | PC.CHAP ---
Pastoral Care Encounter/Spiritual Assessment Type of Contact [] Declined customer response representative visit [] Patient/Family/Request visit [] Outpatient visit [] Follow-up visit [] Physician referral [] Code/Alert [] Routine visit [x] Staff referral [] Actively dying [] Patient sleeping [] Family support [] [] Out of room [] Palliative care [] [x] Receiving care in room [] Pre-surgical visit [] Trauma [] Long length of stay [] ICU visit [] Other: Relational/Emotional Strength [x] Patient feels connected with others/family/visitors/staff [] Distress [] Loneliness/isolation [] Abandonment Spirituality of Patient [x] Person of [place] [] Attends Quaker of their [place] [x] Believes in Prayer [] Reads Bible or Baptist materials [] There are Spiritual issues to be addressed [place] Interventions [x] Prayer [x] Active listening [x] Non-anxious presence [x] Spiritual/emotional support [] Crisis/trauma care [x] Spiritual counseling [] Bereavement support [] Provided bereavement packet [] Provided Bible/devotional materials [] Provided toy/stuffed animal, coloring book to patient or family member [] Provided Communion [] Anointing/[place] [] Salvation [x] Completed spiritual assessment [] Other: Impact on Illness or Injury [] Angry [] Fearful [x] Anxious [] Often cries [] Exhaustion [] Unable to work [] Unable to attend mormon [] Unable to walk/stand [] Unable to read [] Unable to drive [] Unable to eat/drink [] Unable to sleep [] Unable to be with family [] Patient intubated [] Other: Summary dealing with heart surgery doing better has a good attitude well be going home Time spent with patient 10 mins
[2022-05-24 11:00] LABS: Partial Thromboplastin Time 60.2 SECONDS (23.9-36.7)
--- NOTE | 2022-05-24 11:03 | P.PN_ITS ---
Subjective Subjective: Was seen this morning, she does still have some edema she tells me that she feels significantly better no fevers, no chills, no nausea, no vomiting, she is wondering if she has done anything to cause this this Vitals/I&O/Wt Last Vital Signs Temp 98.6 F 05/24/22 07:52 Pulse 73 05/24/22 08:00 Resp 18 05/24/22 08:00 BP 168/79 05/24/22 09:28 Pulse Ox 95 05/24/22 08:00 O2 Del Method 05/24/22 08:00 O2 Flow Rate 2 05/24/22 08:00 05/23/22 05/24/22 05/24/22 22:59 06:59 14:59 Intake Total 467.467 / 1063.917 97.533 / 1161.450 720 / 720 Output Total 1350 / 1700 800 / 2500 Balance -882.533 / -636.083 -702.467 / -1338.550 720 / 720 Weight last 48 hrs Weight 59.965 kg Weight 61.689 kg Weight 63.957 kg Physical Exam Const: COMMON NORMALS: no acute distress and patient oriented x3 Resp: COMMON NORMALS: normal respiratory effort, No retractions, No use of accessory muscles and clear to auscultation bilaterally AUSCULTATION: clear to auscultation bilaterally Cardio: COMMON NORMALS: regular rate, regular rhythm, S1 normal heart sound present and S2 normal heart sound present RATE: regular rate RHYTHM: reg ular rhythm HEART SOUNDS: S1 normal heart sound present and S2 normal heart sound present GI: COMMON NORMALS: Normal to inspection, nondistended, normoactive bowel sounds present and non-tender Neuro: COMMON NORMALS: patient oriented x3 Psych: COMMON NORMALS: mental status grossly normal Urinary Catheter Management: Doran: Cath Placed During This Visit: yes, but has since been removed by the nurse Reason for Continuing Indwelling Catheter: Not indwelling catheter Urinary Catheter Date of Insertion: 05/23/22 Urinary Catheter Time of Insertion: 05:30 Date Urinary Catheter Removed: 05/23/22 Time Urinary Catheter Discontinued: 10:30 Data 05/24/22 03:38 05/24/22 03:38 Micro: Microbiology 05/23/22 04:19 Blood Culture - Preliminary Blood NEGATIVE TO DATE 05/23/22 04:15 Blood Culture - Preliminary Blood NEGATIVE TO DATE 05/23/22 04:55 Bacterial Antigens - Final Urine Kidney 05/23/22 04:55 Legionella Urinary Antigen - Final Urine,Clean Catch A&P Assessment and plan (1) Congestive heart failure with left ventricular diastolic dysfunction, NYHA class 4: (2) Pleural effusion: (3) Mitral valve replaced: (4) Subtherapeutic international normalized ratio (INR): (5) HTN (hypertension): (6) Hypothyroid: (7) Anemia: (8) NSTEMI (non-ST elevated myocardial infarction): Plan 76-year-old lady with recent history of mitral valve replacement for mitral valve collapse within last 2 weeks at outside hospital comes to the ER because of difficulty in breathing and consistent with NYHA class IV found to have bilateral pleural effusions and lower limb swelling. NYHA class IV congestive heart failure/mitral valve replacement: Awaiting records from [facility] regarding recent mitral valve replacement., She tells me that she spent over 6 days in the hospital she is not sure if she any postoperative complications and no history of bleeding no history of pneumonias IV Lasix 40 mg twice daily. Doran catheterization. Strict input output charting. Daily weights. Fluid restriction up to 1500 cc. Monitor BMP and replace potassium accordingly. Echocardiogram to evaluate for ejection fraction, possible pericardial effusion ?LV systolic function is normal with EF 55 to 60%. ?Left atrial dilation ?Limited visualization of mitral valve.? There is prosthetic ?mitral valve noted. ?Calcified aortic valve. ?Mild tricuspid regurgitation ?Moderate pulmonary hypertension ?Moderate pulmonic regurgitation. ?Pleural effusion is seen.? Minimal pericardial effusion ?Ascending aortic is dilated. ?IVC is dilated consistent with volume overload ?No comparison studies are available -Follow blood cultures Infectious cause less likely. We will hold off on antibiotics. Normal Pro-Garrison Check urine Legionella, bacterial antigen, sputum culture, respiratory viral panel so far within normal limits. Oxygen supplementation keeping saturation over 92%. DuoNebs every 6 hour as needed. Bilateral pleural effusion: Most likely in setting of congestive heart failure. Patient not requiring high oxygen supplementation so can hold off on thoracen tesis for now as that could put her at a risk of possibly introducing infection. Can continue to monitor after diuresis. Hypertension: Goal blood pressure less than 140/90 mmHg Patient takes valsartan and amlodipine at home. Continue with home dose of valsartan. Hold off on amlodipine because that could also be contributing to lower limb swelling. Will uptitrate medications as per goal blood pressures. If blood pressures remain elevated can add hydralazine oral. IV hydralazine 10 mg every 6 hourly for blood pressure of more than 170 mmHg. Subtherapeutic INR: Goal INR in for 3 months for mitral valve repair around 2.5. Currently 1.9 check INR daily. Switch to bridging with therapeutic Lovenox Medical reconciliation to be done to gather current Coumadin dose. Therapeutic Lovenox, with Coumadin Continue home dose of statin and levothyroxine. NSTEMI, likely type II, supply demand ischemia from respiratory failure, monitor Has evidence of anemia, seems as if iron deficiency anemia as her low iron we will get a ferritin level consider IV Venofer here Full code. Cardiac diet. Famotidine for PUD prophylaxis Bridging between heparin drip and Coumadin will suffice as DVT prophylaxis Attestations Medical Necessity Statement*: Patient requires hospitalization for CHF exacerbation, requiring diuresis, Diagnoses Congestive heart failure with left ventricular diastolic dysfunction, NYHA class 4 I50.30 Pleural effusion J90 Mitral valve replaced Z95.2 Subtherapeutic international normalized ratio (INR) R79.1 HTN (hypertension) I10 Hypothyroid E03.9 Anemia D64.9 NSTEMI (non-ST elevated myocardial infarction) I21.4
[2022-05-24] MEDS: metOLazone 5 MG Tablet 2.5 MG PO (11:42)
[2022-05-24] MEDS: enoxaparin 60 mg/0.6 mL Syringe SUBCUT ×2 (11:43→22:33)
[2022-05-24] MEDS: warfarin 2 mg Tablet PO (14:28)
[2022-05-24] MEDS: aspirin 325 mg Tablet PO (17:11)
[2022-05-25] VITALS (9 sets, daily range): BP systolic 128–152; BP diastolic 72–86; PULSE 73–96; RESP 17–30; TEMP 36.9–37.2; O2SAT 90–96
[2022-05-25] MEDS: pantoprazole DR 40 mg Tablet PO (03:06)
[2022-05-25 03:49] LABS: Basophils % 0.4 %; Eosinophils # 0.1 10^3/uL (0.0-0.8); Eosinophils % 1.1 %; Hematocrit 35.5 % (37.0-47.0); Hemoglobin 11.5 g/dL (11.5-15.3); Lymphocytes # 1.1 10^3/uL (0.8-4.8); Lymphocytes % 11.3 %; Mean Corpuscular HGB Conc 32.4 g/dL (30.0-36.0); Mean Corpuscular Hemoglobin 31.7 pg (28.0-34.0); Mean Corpuscular Volume 97.8 fl (81-99); Mean Platelet Volume 8.9 fL (7.4-10.4); Monocytes % 10.6 %; Neutrophils # 7.44 10^3/uL (1.8-7.7); Neutrophils % 76.2 %; Nucleated Red Blood Cells % 0 %; Platelet Count 382 10^3/cmm (130-400); Red Blood Count 3.63 10^6/uL (4.1-5.3); Red Cell Distribution Width 13.6 % (12.1-15.1); White Blood Count 9.8 10^3/uL (4.0-10.0)
[2022-05-25 04:02] LABS: INR 2.05 (0.8-1.2)
[2022-05-25 04:17] LABS: Alanine Aminotransferase 29 U/L (0-33); Albumin Level 3.3 g/dL (3.5-5.2); Alkaline Phosphatase 106 U/L (35-105); Anion Gap 12.4 (5-19); Aspartate Amino Transferase 19 U/L (0-32); Blood Urea Nitrogen 13 mg/dL (8-23); Calcium 8.8 mg/dL (8.5-10.5); Carbon Dioxide 31 mmol/L (22-29); Chloride 96 mmol/L (98-107); Globulin 3.6 g/dL (1.3-4.6); Glucose 89 mg/dL (65-115); Magnesium 2.4 mg/dL (1.7-2.3); NT Pro B Type Natriuretic Pept 1787 pg/mL (0-450); Osmolality Calculated 280 mOsm/kg (285-295); Phosphorus 3.8 mg/dL (2.5-4.5); Potassium 4.4 mmol/L (3.5-5.1); Sodium 135 mmol/L (136-145); Total Bilirubin 0.3 mg/dL (0.15-1.2); Total Protein 6.9 g/dL (6.6-8.7)
[2022-05-25] MEDS: ferrous gluconate 324 mg Tablet PO (08:39)
[2022-05-25] MEDS: metOLazone 5 MG Tablet PO (08:39)
[2022-05-25] MEDS: losartan 50 mg Tablet 100 MG PO (08:40)
[2022-05-25] MEDS: levothyroxine 25 mcg Tablet PO (08:40)
[2022-05-25] MEDS: atorvastatin 40 mg Tablet 20 MG PO (08:40)
[2022-05-25] MEDS: docusate sodium 100 mg Capsule PO (08:40)
[2022-05-25] MEDS: famotidine 20 mg Tablet PO (08:40)
[2022-05-25] MEDS: potassium chloride ER 20 mEq Tablet PO (08:41)
[2022-05-25] MEDS: spironolactone 25 mg Tablet 50 MG PO (08:41)
--- NOTE | 2022-05-25 09:21 | P.DS_ITS ---
Discharge Providers Date of Admission: 05/23/22 02:52 Date of Discharge: May 25, 2022 Attending Provider at Admission: Robert Monson MD Attending Provider at Discharge: Ck Mae MD Primary Care Provider: Lindsay Prater MD Diagnoses at Discharge Discharge Diagnosis (1) Congestive heart failure with left ventricular diastolic dysfunction, NYHA class 4: Status: Acute (2) Pleural effusion: Status: Acute (3) Mitral valve replaced: Status: Acute (4) Subtherapeutic international normalized ratio (INR): Status: Acute (5) HTN (hypertension): Status: Acute (6) Hypothyroid: Status: Acute (7) Anemia: Status: Acute (8) NSTEMI (non-ST elevated myocardial infarction): Status: Acute Reason for Visit Reason for Visit: heart surgery 2 weeks ago/face and arm numbness Hospital Course Hospital Course Barbara Magallanes is a 76 year old female with past medical history of hypertension, hypothyroidism, recent mitral valve replacement for mitral valve p rolapse at [facility] within the last 2 weeks and was discharged 2 weeks ago who usually has called for cardiac care done at [facility].? As per patient since she was discharged she has noticed increased in lower limb swelling along with gradually increasing and difficulty in breathing for last 3 to 4 days.? Currently she gets out of breath on minimal activity like taking or taking a bath.? Complains of orthopnea and PND.? Denies any nausea, vomiting, headache.? Does complain of constipation.? Denies any runny nose, postnasal drip, recent sick contacts. She states she has home health who checks her INR and usual numbers are around 1.7-1.8.? Checks her blood pressure daily at home and usual numbers 140 systolics.? Does have an event monitor placed as well.? She denies of having any palpitations since discharge still today morning after coming to the ER.? Denies any episodes of chest pain Patient presented to [facility] for diastolic CHF exacerbation, received diuresis, diuresed over 7 L, clinically improved, discharged with Lasix therapy 40 mg once daily with potassium replacement therapy with oxygen therapy follow-up with primary care on Saturday She had bilateral pleural effusions, no thoracocentesis needed, monitor as an outpatient For subtherapeutic INR, I was told by patient's cardiothoracic surgeon nurse that the goal of INR was between 2 and 3, currently her INR is 2, will continue therapeutic Lovenox and bridge for 48 hours over the weekend on Saturday recheck INR through Dr. Solis's office, this result will be sent to [facility] Coumadin clinic, to further dose Coumadin and decide if need to continue or discontinue Lovenox based upon INR. Patient was advised she has any bloody or black stools go to emergency room She does have some evidence of iron deficiency anemia, no complaint of blood or black stools, monitor, hemoglobin discharge 11.5 Physical Exam Const: COMMON NORMALS: no acute distress and patient oriented x3 Resp: COMMON NORMALS: normal respiratory effort, No retractions, No use of accessory muscles and clear to auscultation bilaterally AUSCULTATION: clear to auscultation bilaterally Cardio: COMMON NORMALS: regular rate, regular rhythm, S1 normal heart sound present and S2 normal heart sound present RATE: regular rate RHYTHM: regular rhythm HEART SOUNDS: S1 normal heart sound present and S2 normal heart sound present GI: COMMON NORMALS: Normal to inspection, nondistended, normoactive bowel sounds present and non-tender Extremity: COMMON NORMALS: no pedal edema Neuro: COMMON NORMALS: patient oriented x3 Psych: COMMON NORMALS: mental status grossly normal Urinary Catheter Management: Doran: Cath Placed During This Visit: yes, but has since been removed by the nurse Reason for Continuing Indwelling Catheter: Not indwelling catheter Urinary Catheter Date of Insertion: 05/23/22 Urinary Catheter Time of Insertion: 05:30 Date Urinary Catheter Removed: 05/23/22 Time Urinary Catheter Discontinued: 10:30 Discharge Data Studies Completed and Pending Completed Studies During Hospitalization Category Date Time Status CTA chest [CT angio chest PE protcl [id number]] Stat Cat Scan 05/22/22 22:54 Completed XR chest 1V portable [id number] Stat Exams 05/22/22 22:29 [place] [id number] Routine Ultrasound 05/23/22 06:00 Completed CV. echo complete* [id number] Stat Ultrasound 05/23/22 02:14 Completed Pending at discharge Category Date Time Status Blood Culture Stat Lab 05/23/22 04:15 Results Complete Blood Count w/Auto AM LABS Lab 05/26/22 04:00 Ordered Complete Blood Count w/Auto AM LABS Lab 05/27/22 04:00 Ordered Comprehensive Metabolic Panel AM LABS Lab 05/26/22 04:00 Ordered Comprehensive Metabolic Panel AM LABS Lab 05/27/22 04:00 Ordered Magnesium AM LABS Lab 05/26/22 04:00 Ordered Magnesium AM LABS Lab 05/27/22 04:00 Ordered NT Pro B Type Natriuretic Pept QAM Lab 05/26/22 06:00 Ordered NT Pro B Type Natriuretic Pept QAM Lab 05/27/22 06:00 Ordered Phosphorus AM LABS Lab 05/26/22 04:00 Ordered Phosphorus AM LABS Lab 05/27/22 04:00 Ordered Prothrombin Time INR AM LABS Lab 05/26/22 04:00 Ordered Sputum Culture and Gram Stain Stat Lab 05/23/22 02:22 Uncollected Radiology Impressions Chest X-Ray 05/22/22 22:29 IMPRESSION: 1. Small to moderate right and moderate to large left pleural effusions. 2. Bilateral lower lung field atelectasis versus infiltrate. 3. Sternotomy wires. Chest CTA 05/22/22 22:54 IMPRESSION: 1. Large bilateral pleural effusions. 2. Cardiomegaly. 3. Coronary artery atherosclerotic calcifications. 4. Pericardial effusion measuring 10 mm in thickness. 5. Bilateral dependent airspace infiltrates. 6. Negative for pulmonary embolus. Laboratory Results WBC 9.8 10^3/uL (4.0-10.0) 05/25/22 03:11 RBC 3.63 10^6/uL (4.1-5.3) L 05/25/22 03:11 Hgb 11.5 g/dL (11.5-15.3) 05/25/22 03:11 Hct 35.5 % (37.0-47.0) L 05/25/22 03:11 MCV 97.8 fl (81-99) 05/25/22 03:11 MCH 31.7 pg (28.0-34.0) 05/25/22 03:11 MCHC 32.4 g/dL (30.0-36.0) 05/25/22 03:11 RDW 13.6 % (12.1-15.1) 05/25/22 03:11 Plt Count 382 10^3/cmm (130-400) 05/25/22 03:11 MPV 8.9 fL (7.4-10.4) 05/25/22 03:11 Neut % (Auto) 76.2 % 05/25/22 03:11 Lymph % (Auto) 11.3 % 05/25/22 03:11 [place] % (Auto) 10.6 % 05/25/22 03:11 Eos % (Auto) 1.1 % 05/25/22 03:11 Baso % (Auto) 0.4 % 05/25/22 03:11 Neut # (Auto) 7.44 10^3/uL (1.8-7.7) 05/25/22 03:11 Lymph # (Auto) 1.1 10^3/uL (0.8-4.8) 05/25/22 03:11 [place] # (Auto) 1.0 10^3/uL (0.2-0.9) H 05/25/22 03:11 Eos # (Auto) 0.1 10^3/uL (0.0-0.8) 05/25/22 03:11 Baso # (Auto) 0.0 10^3/uL (0.0-0.1) 05/25/22 03:11 Nucleated RBC % (auto) 0 % 05/25/22 03:11 Nucleated RBCs # 0.0 /100WBC 05/25/22 03:11 PT 23.90 SECONDS (12.1-14.9) H 05/25/22 03:11 INR 2.05 (0.8-1.2) H 05/25/22 03:11 APTT 60.2 SECONDS (23.9-36.7) H 05/24/22 10:35 Sodium 135 mmol/L (136-145) L 05/25/22 03:11 Potassium 4.4 mmol/L (3.5-5.1) 05/25/22 03:11 Chloride 96 mmol/L (98-107) L 05/25/22 03:11 Carbon Dioxide 31 mmol/L (22-29) H 05/25/22 03:11 Anion Gap 12.4 (5-19) 05/25/22 03:11 BUN 13 mg/dL (8-23) 05/25/22 03:11 Creatinine 0.6 mg/dL (0.5-0.9) 05/25/22 03:11 GFR Calculation Not Reportable 05/25/22 03:11 Glucose 89 mg/dL (65-115) 05/25/22 03:11 Estimat Average Glucose 108 05/22/22 23:52 Hemoglobin A1c 5.4 % (4.0-6.0) 05/22/22 23:52 Calculated Osmolality 280 mOsm/kg (285-295) L 05/25/22 03:11 Calcium 8.8 mg/dL (8.5-10.5) 05/25/22 03:11 Phosphorus 3.8 mg/dL (2.5-4.5) 05/25/22 03:11 Magnesium 2.4 mg/dL (1.7-2.3) H 05/25/22 03:11 Iron 35 ug/dL (37-145) L 05/23/22 04:46 TIBC 235 mcg/dl 05/23/22 04:46 % Saturation 14.8 % (20-50) L 05/23/22 04:46 Unsat Iron Binding 200 ug/dL (112-347) 05/23/22 04:46 Ferritin 484 ng/mL (15-150) H 05/23/22 06:34 Total Bilirubin 0.3 mg/dL (0.15-1.2) 05/25/22 03:11 AST 19 U/L (0-32) 05/25/22 03:11 ALT 29 U/L (0-33) 05/25/22 03:11 Alkaline Phosphatase 106 U/L (35-105) H 05/25/22 03:11 Troponin T Baseline 67 ng/L (0-10) H 05/22/22 23:52 Troponin T 120 Minute 73.11 ng/L (0-10) H 05/23/22 04:19 Delta Troponin T 6.11 ABS# (0-10) 05/23/22 04:19 Troponin T Hi Sens 6Hr 78.26 ng/L (0-10) H 05/23/22 06:34 Troponin T Hi Sens 6Hr Delta 11.26 ng/L (0-12) 05/23/22 06:34 NT-Pro-B Natriuret Pep 1787 pg/mL (0-450) H 05/25/22 03:11 Total Protein 6.9 g/dL (6.6-8.7) 05/25/22 03:11 Albumin 3.3 g/dL (3.5-5.2) L 05/25/22 03:11 Globulin 3.6 g/dL (1.3-4.6) 05/25/22 03:11 Triglycerides 68 mg/dL (0-150) 05/23/22 04:46 Cholesterol 119 mg/dL (0-200) 05/23/22 04:46 LDL Cholesterol, Calc 59 mg/dL (50-129) 05/23/22 04:46 Total VLDL Cholesterol 14 mg/dL (0-30) 05/23/22 04:46 HDL Cholesterol 46 mg/dL (60-100) L 05/23/22 04:46 Cholesterol/HDL Ratio 2.59 mg/dL (0.0-4.40) 05/23/22 04:46 Vitamin B12 423 pg/mL (232-1245) 05/23/22 04:46 Folate 15.4 ng/mL (4.8-37.3) 05/23/22 04:46 Procalcitonin 0.03 ng/mL (0-0.5) 05/23/22 04:46 TSH 1.39 uIU/mL (0.27-4.20) 05/22/22 23:52 Urine Color Colorless (Yellow) 05/23/22 04:55 Urine Appearance Clear (CLEAR) 05/23/22 04:55 Urine pH 7 (5-7) 05/23/22 04:55 Ur Specific [place] 1.010 (1.005-1.030) 05/23/22 04:55 Urine Protein Neg (Negative) 05/23/22 04:55 Urine Glucose (UA) Norm (Normal) 05/23/22 04:55 Urine Ketones Negative (Negative) 05/23/22 04:55 Urine Blood Neg (Negative) 05/23/22 04:55 Urine Nitrate Negative (Negative) 05/23/22 04:55 Urine Bilirubin Neg (Negative) 05/23/22 04:55 Urine Urobilinogen Norm mg/dL (Negative) 05/23/22 04:55 Ur Leukocyte Esterase Negative (Negative) 05/23/22 04:55 Nasal Influ A H1 2008 PCR Not detected (NOT DETECT) 05/23/22 03:56 Adenovirus (PCR) Not detected (NOT DETECT) 05/23/22 03:56 C. pneumoniae DNA (PCR) Not detected (NOT DETECT) 05/23/22 03:56 Coronavirus 229E (PCR) Not detected (NOT DETECT) 05/23/22 03:56 Human Metapneumovir PCR Not detected (NOT DETECT) 05/23/22 03:56 Influenza A (H1) PCR Not detected (NOT DETECT) 05/23/22 03:56 Influenza A (H3) PCR Not detected (NOT DETECT) 05/23/22 03:56 Influenza Type A (PCR) Not detected (NOT DETECT) 05/23/22 03:56 Influenza Type B (PCR) Not detected (NOT DETECT) 05/23/22 03:56 M. pneumoniae (PCR) Not detected (NOT DETECT) 05/23/22 03:56 Parainfluenza 1 (PCR) Not detected (NOT DETECT) 05/23/22 03:56 Parainfluenza 2 (PCR) Not detected (NOT DETECT) 05/23/22 03:56 Parainfluenza 3 (PCR) Not detected (NOT DETECT) 05/23/22 03:56 Parainfluenza 4 (PCR) Not detected (NOT DETECT) 05/23/22 03:56 RSV Type A (PCR) Not detected (NOT DETECT) 05/23/22 03:56 RSV Type B (PCR) Not detected (NOT DETECT) 05/23/22 03:56 Entero/Rhino (PCR) Not detected (NOT DETECT) 05/23/22 03:56 SARS-CoV-2 (PCR) Not detected (NOT DETECT) 05/23/22 03:56 Vitals Last Vital Signs Temp 98.7 F 05/25/22 04:00 Pulse 92 05/25/22 08:11 Resp 17 05/25/22 08:11 BP 128/72 05/25/22 08:40 Pulse Ox 96 05/25/22 08:11 O2 Del Method 05/24/22 21:29 O2 Flow Rate 1 05/25/22 07:37 Discharge Plan Discharge Patient Disposition: Home Condition: Stable Prescriptions: New enoxaparin 60 mg/0.6 mL Syringe 60 mg SUBCUT Q12H 7 Days Qty: 8.4 0RF potassium chloride [Klor-Con M20] 20 mEq Tablet,Er Particles/Crystals 20 meq PO DAILY 30 Days Qty: 30 0RF spironolactone 25 mg Tablet 50 mg PO DAILY 30 Days Qty: 30 0RF furosemide [Lasix] 40 mg tablet 40 mg PO DAILY 30 Days Qty: 30 0RF Continued amlodipine 5 mg tablet 5 mg PO QAM atorvastatin 10 mg tablet 10 mg PO QPM alendronate 70 mg tablet 70 mg PO Q7D Rx Instructions: on sat zolpidem [Ambien] 10 mg tablet 10 mg PO BEDTIME PRN (Reason: insomnia) tramadol 50 mg tablet 50 mg PO QID PRN (Reason: Pain) levothyroxine 25 mcg tablet 25 mcg PO QAM warfarin 2 mg tablet 2 mg PO QPM omeprazole 20 mg capsule,delayed release(DR/EC) 20 mg PO QAM azelastine 137 mcg (0.1 %) aerosol,spray 2 spray INTRANASAL BID PRN (Reason: Allergy Symptoms) valsartan 160 mg tablet 160 mg PO QAM aspirin 325 mg Tablet 325 mg PO QPM Vitamin D3 50 mcg (2,000 unit) Tablet 50 mcg PO DAILY Discharge Orders: Discharge Order (Routine); Ordered 05/25/22 Ordered By: Ck Mae Referrals: Lindsay Prtaer MD [Primary Care Provider] - 1-3 days (NEEDS APPOINTMENT ON SATURDAY) Discharge Diet: Cardiac Discharge Activity: Resume usual activity Patient Instructions: Opioid Safety Activity Restrictions/Additional Instructions: -coutinue coumadin(warfarin) 2mg once daily -coutinue lovenox injection twice daily -INR on discharge is 2 -Will bridge for 48 hours -recheck INR through primary care on SATURDAY, this will be sent to Coumadin clinic on and they will call you for further dosing -INR on Saturday will dictate if we need to continue lovenox for discontinue, and what does of Coumadin you take -take lasix 40mg once daily wwith potassium as prescribed, have primary care recheck your potassium -see zachery june 05/2023 -see [facility] faculty member june 29/2023 -They will call you for appointment for heart failure clinic Discharge Attestations Time Spent in Discharge Care*: greater than 30 min Quality Metrics Clinical Quality Measures [ No reported AMI, CVA or VTE this stay] Coding Level of Care Code 11577 Total time (in minutes) for Discharge: 40 Diagnoses Congestive heart failure with left ventricular diastolic dysfunction, NYHA class 4 I50.30 Pleural effusion J90 Mitral valve replaced Z95.2 Subtherapeutic international normalized ratio (INR) R79.1 HTN (hypertension) I10 Hypothyroid E03.9 Anemia D64.9 NSTEMI (non-ST elevated myocardial infarction) I21.4
[2022-05-25] MEDS: FUROsemide 10 mg/mL SDV 4mL 40 MG IVP (09:35)
[2022-05-25] MEDS: enoxaparin 60 mg/0.6 mL Syringe SUBCUT (11:56)
--- NOTE | 2022-05-25 15:41 | PC.NURSE ---
discharge instructions given and explained,including lovenox injections. ( pt injected self this morning after instructions).pt verb understanding of instructions.discharged via w/c to exit at this time.pt's friend to drive pt to friend's home
== END 2022-05-25 15:45 | disposition home health service (06) | DRG 280 ==
LOC: ER 05-23 02:15 → CSU 05-23 02:53
PROVIDERS: Admitting Provider Student in an Organized Health Care Education/Training Program; Emergency Provider Emergency Medicine; PCP Family Medicine; Visit Provider Family Medicine
DX: I11.0 Hypertensive heart disease with heart failure (principal); I21.A1 Myocardial infarction type 2; I50.33 Acute on chronic diastolic (congestive) heart failure; E03.9 Hypothyroidism, unspecified; Z95.2 Presence of prosthetic heart valve; R79.1 Abnormal coagulation profile; D50.9 Iron deficiency anemia, unspecified; Z79.891 Long term (current) use of opiate analgesic; Z79.01 Long term (current) use of anticoagulants
CPT/HCPCS: 36415; 51702; 71045; 71275; 80053; 80061; 81003; 82607; 82728; 82746; 83036; 83540; 83550; 83735; 83880; 84100; 84145; 84443; 84484; 85025; 85610; 85730; 86403; 87040; 87449; 87486; 87581; 87633; 93005; 93306; 93970; 94664; 94760; 96372; 96374; 99285; J1644; J1650; J1940; Q9967

== ENCOUNTER → 2023-05-19 16:02 | Outpatient (BNVA) | payer MEDICARE, OTHER, SELFPAY | PROVIDERS: PCP Family Medicine; Visit Provider Nurse Practitioner Family | DX: U07.1 COVID-19 (principal) | CPT/HCPCS: 87426 ==